=== PATIENT | male | born 1950 | race Caucasian/White ===

== ENCOUNTER 2022-10-05 09:55 | Emergency (ER) | payer OTHER, SELFPAY ==
[2022-10-05 10:16] VITALS: BP 142/90; PULSE 64; RESP 12; TEMP 37.3; O2SAT 95
--- NOTE | 2022-10-05 10:40 | ED.WOUNDLAC ---
HPI - Wound/Laceration General Chief Complaint: Wound/Laceration Stated Complaint: cut finger left hand Time Seen by Provider: 10/05/22 10:22 Source: patient, family () and RN notes reviewed Mode of arrival: ambulatory Limitations: no limitations History of Present Illness HPI narrative: Patient presents today with a laceration to his left 3rd finger that was sustained just prior to arrival on a table saw at home. Denies numbness or tingling. Currently rates his pain 2/10, which increases with movement or touching the area. He is not up-to-date on his tetanus vaccine. Related Data Home Medications Medication Instructions Recorded Confirmed amlodipine 2.5 mg tablet mg 10/05/22 aspirin 81 mg chewable tablet 10/05/22 atorvastatin 40 mg tablet mg 10/05/22 carvedilol 6.25 mg tablet mg 10/05/22 hydrochlorothiazide 25 mg tablet mg 10/05/22 lisinopril 40 mg tablet mg 10/05/22 Allergies Allergy/AdvReac Type Severity Reaction Status Date / Time Penicillins Allergy Unknown RASH Verified 10/05/22 10:15 Review of Systems Review of Systems: CONSTITUTIONAL: Denies body aches, fever, chills, or sweats. EYES: Denies visual changes, redness, or discharge. ENT: Denies rhinorrhea, congestion, sore throat, or otalgia. CARDIOVASCULAR: Denies chest pain, palpitations, or edema. RESPIRATORY: Denies cough or dyspnea. GASTROINTESTINAL: Denies abdominal pain, nausea, vomiting, or diarrhea. GENITOURINARY: Denies dysuria or hematuria. SKIN: + left 3rd finger laceration MUSCULOSKELETAL: Denies back pain, joint pain, or myalgia. NEUROLOGIC: Denies headache, numbness, tingling, or weakness. PSYCH: Denies depression or anxiety. [facility] Past Medical History Medical History (Updated 10/05/22 @ 11:39 by Tyra Martines, [facility], ) High cholesterol Hypertension Comments At time of signature, I have reviewed and agree with nursing past medical, surgical, social and family history unless otherwise noted. Please see nursing chart for further information. There is no relevant family history pertinent to the presenting complaint Exam Narrative: GENERAL: Well-appearing, well-nourished, and in no acute distress. HEAD: Normocephalic, atraumatic. EYES: EOMI. No redness or drainage. Conjunctivae normal. ENT: Mucous membranes pink and moist. NECK: Normal AROM. . CHEST: No respiratory distress. EXTREMITIES: Left 3rd finger: Jagged laceration the palmar aspect of the finger starting at the fingernail and extending down the dorsum to the middle phalanx. Generally the laceration is fairly superficial with the majority of the laceration being avulsions of the skin. No fatty tissue is visualized. Distal sensation intact. Capillary refill normal. Full range of motion of the finger against resistance. SKIN: Warm, dry, no rash. Capillary refill normal. Normal skin turgor. NEURO: No focal deficits. Alert and oriented x3. Gait steady. PSYCH: Normal affect. No signs of depression or anxiety. Course Course Level of Care: Express Care Visit Vital Signs Vital signs: Vital Signs Temperature 99.2 F 10/05/22 10:16 Pulse Rate 64 10/05/22 10:16 Respiratory Rate 12 10/05/22 10:16 Blood Pressure 142/90 H 10/05/22 10:16 Pulse Oximetry 95 10/05/22 10:16 Oxygen Delivery Room Air 10/05/22 10:16 Temperature 99.2 F 10/05/22 10:16 Pulse Rate 64 10/05/22 10:16 Respiratory Rate 12 10/05/22 10:16 Blood Pressure 142/90 H 10/05/22 10:16 Pulse Oximetry 95 10/05/22 10:16 Oxygen Delivery Room Air 10/05/22 10:16 Reviewed. Pt has been instructed to follow up with his PCP regarding his elevated blood pressure today. Procedures Laceration Laceration 1: Date: 10/05/22 Time: 11:34 Site: hand (left 3rd finger) Size (cm): 4 Description: irregular Depth: simple, single layer Local Anesthetic: lidocaine 1% Amount of anesthesia used (mL): 4 Pre-r
[2022-10-05] MEDS: TETANUS/DIPHTHERIA TOXOIDS ADSORB 0.5 ML VIAL (*BKC) IM (10:41)
== END 2022-10-05 11:48 | disposition home or self-care (01) ==
PROVIDERS: Emergency Provider Nurse Practitioner
DX: S61.213A Laceration without foreign body of left middle finger without damage to nail, initial encounter (principal); W27.0XXA Contact with workbench tool, initial encounter; Z23 Encounter for immunization; E78.00 Pure hypercholesterolemia, unspecified; I10 Essential (primary) hypertension
CPT/HCPCS: 12002; 90471; 90714; 99213; G0463